=== PATIENT | female | born 1960 | race Caucasian/White ===

== ENCOUNTER 2016-09-20 02:25 | Emergency (ER) | payer OTHER ==
--- NOTE | 2016-09-20 02:53 | ED NURSING NOTES ---
Clinical Report - Nurses Formerly [facility] [address] [place] [address] 09/20/2016 2:28 Patient: MOI DOYLE TRIAGE Triage time 02:Sep 20 2016. Acuity: LEVEL 3. Chief Complaint: CHEST PAIN and DISCOMFORT. Alert. DIVYA COMA SCORE: Divya Coma Scale: 15- eyes open spontaneously (4); best verbal response- oriented x 4 (5); best motor response- obeys commands (6). --02:47 Hernando Holcomb R.N. 02:29 09/20/16. BP: 145/78. HR: 65. RR: 16. O2 saturation: 100% on nasal cannula at 2 liters/minute. Temp: 97.6 F. Pain level now: 7/10. Additional comments: Substernal chest pain. --02:47 Hernando Holcomb R.N. Weight: 68.4 kg measured. Height/Length: 63 inches Per Patient. BMI: 26.7. --02:30 Hernando Holcomb R.N. Medications Levothyroxine Sodium Oral 75 mcg, daily. --02:45 Hernando Holcomb R.N. Medication/allergy information source: the patient. --02:47 Hernando Holcomb R.N. Allergies Penicillins. Definite Severe(swelling) --02:46 Hernando Holcomb R.N. History Arrived by private vehicle. Historian: patient. Accompanied by spouse. ( Chest Pain starting about one hour ago while sleeping. Pt states that she was so uncomfortable that she couldn't go back to sleep.). Onset. (about 1 hour ago). She has had nausea. Treatment TRACK MAINTAINER: (sips of water.). PAST MEDICAL HX: The patient is post-menopausal. SURGERY HX: No history of previous surgery. SOCIAL HX: Heavy tobacco smoker (cigarette)- less than 1 pack per day. No alcohol use or drug use. No infectious disease exposure. ABUSE ASSESSMENT: No report of abuse. FALL RISK ASSESSMENT: Fall risk assessment completed. No fall risk identified. NUTRITIONAL RISK ASSESSMENT: The nutritional risk assessment revealed no deficiencies. FUNCTIONAL ASSESSMENT: Functional assessment: no impairments noted. LEARNING NEEDS ASSESSMENT: The learning needs assessment revealed no barriers. SKIN INTEGRITY ASSESSMENT: Skin integrity risk assessment completed. No skin integrity risk identified. --02:47 Hernando Holcomb R.N. ADDITIONAL SURGERIES: no known surgeries. Interventions ID band on patient. To treatment room. --02:47 Hernando Holcomb R.N. PHYSICAL ASSESSMENT Ambulatory to room. GENERAL / NEURO / PSYCH: Alert. Oriented X 4. HEENT: Mucous membranes are pink. RESPIRATORY: Respirations not labored. CVS: Normal sinus rhythm noted. GI / : Abdomen soft and nontender. EXTREMITIES: No lower extremity edema. SKIN: Skin is warm and dry. Normal skin turgor. --02:48 Hernando Holcomb R.N. NURSING PROGRESS NOTES Oxygen administered by nasal cannula at 2 liters. grocery store associate, pulse oximeter and NIBP monitor placed on patient; youth services specialist- Lead II and V1; monitor alarms on. Patient gowned. Reassurance given to the patient. Patient identifiers checked. Call light placed in reach. Side rails up x 1. Bed placed in lowest position. Brakes of bed on. Patient ready for evaluation- chart flagged and ED physician notified. --02:48 Hernando Holcomb R.N. EKG time: (0237). EKG was ordered, performed by a tech and shown to the ED physician. --02:49 Hernesto Kulkarni, ER Game Farm Supervisor 02:35 09/20/2016 Aspirin PO Tablets 325 mg given. Allergies verified and confirmed 5 rights. --02:50 Hernando Holcomb R.N. 02:37 09/20/2016 Nitroglycerin SL Tablets 0.4 mg given. Allergies verified and confirmed 5 rights. --02:53 Hernando Holcomb R.N. <<STRICKEN ENTRY-- 02:38 09/20/2016 Heparin IVP 5000 unit given over 2 minute(s) via site #2. Allergies verified and confirmed 5 rights. IV patency established. IV site checked: no pain, redness, or swelling. IV flushed thoroughly pre- and post-medication administration. IVP given by RN. --03:03 Hernando Holcomb R.N. --END STRIKE>> Correction. --03:27 Hernando Holcomb R.N. 02:40 09/20/2016 Site #1 started via IV in the left antecubital space with an 18g angiocath, with aseptic technique and good blood return; one attempt. Blood drawn: rainbow set. Labeled in the presence of the patient and sent to the lab. Saline lock flushed with 10 mL saline (start by DANICA Davila). --02:51 Hernando Holcomb R.N. 02:45 09/20/2016 Started bag #1 1000 mL IV Fluids IV NS (Saline); at 1000 mL/hr over 60 minute(s) via site #1 --02:52 Hernando Holcomb R.N. 02:46 09/20/2016 Nitroglycerin SL Tablets 0.4 mg given. Allergies verified and confirmed 5 rights. --02:56 Hernando Holcomb R.N. 02:54 09/20/2016 Zofran (Ondansetron HCl) IVP 8 mg given. via site #1. Allergies verified and confirmed 5 rights. IV patency established. IV site checked: no pain, redness, or swelling. IV flushed thoroughly pre- and post-medication administration. IVP given by RN. --02:59 Hernando Holcomb R.N. 03:00 09/20/2016 Site #2 started via IV in the right with an 20g angiocath, with aseptic technique and good blood return; one attempt. Blood drawn: rainbow set. Labeled in the presence of the patient and sent to the lab. Saline lock flushed with 10 mL saline. --03:03 Hernadno Holcomb R.N. 03:07 09/20/16. BP: 111/64. HR: 80. RR: 16. --03:09 Hernando Holcomb R.N. 02:45 09/20/16. BP: 126/75. HR: 62. RR: 13. O2 saturation: 100% on nasal cannula at 2 liters/minute. Pain level now: 04/30. --03:13 Hernando Holcomb R.N. 03:17 09/20/16. BP: 115/64. HR: 72. RR: 16. O2 saturation: 100% on nasal cannula at 2 liters/minute. --03:25 Hernando Holcomb R.N. 03:00 09/20/2016 Heparin IVP 5000 unit given over 2 minute(s) via site #2. Allergies verified and confirmed 5 rights. IV patency established. IV site checked: no pain, redness, or swelling. IV flushed thoroughly pre- and post-medication administration. IVP given by RN. --03:27 Hernando Holcomb R.N. 03:20 09/20/2016 Lopressor (Metoprolol Tartrate) IVP 5 mg given over 2 minute(s) via site #2. Allergies verified and confirmed 5 rights. IV patency established. IV site checked: no pain, redness, or swelling. IV flushed thoroughly pre- and post-medication administration. IVP given by RN. --03:26 Hernando Holcomb R.N. 03:30 09/20/16. BP: 121/69. HR: 56. RR: 16. O2 saturation: 100% on nasal cannula at 2 liters/minute. Pain level now: 04/30. --03:32 Hernando Holcomb R.N. 03:40 09/20/2016 IV Fluids IV NS Bag Change: bag #1. Total amount infused: 1000. STARTED bag #2 (1000 mL) at 200 mL/hr via IV pump. Confirmed 5 rights. IV patency established. IV site checked: no pain, redness, or swelling. IV flushed thoroughly. --05:21 Hernando Holcomb R.N. 03:41 09/20/2016 Plavix (Clopidogrel Bisulfate) PO Tablets 600 mg given. Allergies verified and confirmed 5 rights. --03:41 Dirk Brown R.N. 03:45 09/20/2016 Site #[address] upon transfer; patent and no signs of infection or infiltration. Good blood return present. Converted to saline lock and flushed with 10 mL saline; flushes easily. --05:27 Hernando Holcomb R.N. 03:45 09/20/2016 Site #[address] upon transfer; patent. Good blood return present. Flushed (IV fluids infusing in this site). --05:28 Hernando Holcomb R.N. 03:45 09/20/2016 IV Fluids IV NS Continued: upon transfer at the rate of 200 mL/hr. 900 mL remaining bag #2. IV patency established. IV site checked: no pain, redness, or swelling. IV flushed thoroughly. --05:25 Hernando Holcomb R.N. ( 0300--Heparin gtt just started by RN and then stopped by the transfer crew because they don't transfer with IV medications on a pump.). --05:33 Hernando Holcomb R.N. DISPOSITION / DISCHARGE Departure time: 0345. --05:07 Hernando Holcomb R.N. 03:45. Condition at departure: improved. Transferred to [facility]. Transported via ambulance by transport team with monitor, IV, O2 and emergency medications. Report was given to a nurse via a phone call. Report included patient's care, treatment, medications, reviewed medication reconcilliation, and condition (including any recent changes or anticipated changes). All questions were answered. Report was acknowledged and care was transferred. --05:14 Hernando Holcomb R.N. 03:30 09/20/16. BP: 124/68. HR: 56. RR: 16. O2 saturation: 100% on nasal cannula at 2 liters/minute. Temp: 98.3 F (oral). Pain level now: 0/10. --05:16 Hernando Holcomb R.N. Locked/Released at 09/20/2016 5:35 by Hernando Holcomb R.N.
--- NOTE | 2016-09-20 02:53 | ED NURSING NOTES ---
Clinical Report - Nurses Merged With [facility] [address] [place] [address] 09/20/2016 2:28 Patient: MOI DOYLE TRIAGE Triage time 02:Sep 20 2016. Acuity: LEVEL 3. Chief Complaint: CHEST PAIN and DISCOMFORT. Alert. DIVYA COMA SCORE: Divya Coma Scale: 15- eyes open spontaneously (4); best verbal response- oriented x 4 (5); best motor response- obeys commands (6). --02:47 Hernando Holcomb R.N. 02:29 09/20/16. BP: 145/78. HR: 65. RR: 16. O2 saturation: 100% on nasal cannula at 2 liters/minute. Temp: 97.6 F. Pain level now: 7/10. Additional comments: Substernal chest pain. --02:47 Hernando Holcomb R.N. Weight: 68.4 kg measured. Height/Length: 63 inches Per Patient. BMI: 26.7. --02:30 Hernando Holcomb R.N. Medications Levothyroxine Sodium Oral 75 mcg, daily. --02:45 Hernando Holcomb R.N. Medication/allergy information source: the patient. --02:47 Hernando Holcomb R.N. Allergies Penicillins. Definite Severe(swelling) --02:46 Hernando Holcomb R.N. History Arrived by private vehicle. Historian: patient. Accompanied by spouse. ( Chest Pain starting about one hour ago while sleeping. Pt states that she was so uncomfortable that she couldn't go back to sleep.). Onset. (about 1 hour ago). She has had nausea. Treatment SHOWROOM CONSULTANT: (sips of water.). PAST MEDICAL HX: The patient is post-menopausal. SURGERY HX: No history of previous surgery. SOCIAL HX: Heavy tobacco smoker (cigarette)- less than 1 pack per day. No alcohol use or drug use. No infectious disease exposure. ABUSE ASSESSMENT: No report of abuse. FALL RISK ASSESSMENT: Fall risk assessment completed. No fall risk identified. NUTRITIONAL RISK ASSESSMENT: The nutritional risk assessment revealed no deficiencies. FUNCTIONAL ASSESSMENT: Functional assessment: no impairments noted. LEARNING NEEDS ASSESSMENT: The learning needs assessment revealed no barriers. SKIN INTEGRITY ASSESSMENT: Skin integrity risk assessment completed. No skin integrity risk identified. --02:47 Hernando Holcomb R.N. ADDITIONAL SURGERIES: no known surgeries. Interventions ID band on patient. To treatment room. --02:47 Hernando Holcomb R.N. PHYSICAL ASSESSMENT Ambulatory to room. GENERAL / NEURO / PSYCH: Alert. Oriented X 4. HEENT: Mucous membranes are pink. RESPIRATORY: Respirations not labored. CVS: Normal sinus rhythm noted. GI / : Abdomen soft and nontender. EXTREMITIES: No lower extremity edema. SKIN: Skin is warm and dry. Normal skin turgor. --02:48 Hernando Holcomb R.N. NURSING PROGRESS NOTES Oxygen administered by nasal cannula at 2 liters. concrete panel installer, pulse oximeter and NIBP monitor placed on patient; liner reroll tender- Lead II and V1; monitor alarms on. Patient gowned. Reassurance given to the patient. Patient identifiers checked. Call light placed in reach. Side rails up x 1. Bed placed in lowest position. Brakes of bed on. Patient ready for evaluation- chart flagged and ED physician notified. --02:48 Hernando Holcomb R.N. EKG time: (0237). EKG was ordered, performed by a tech and shown to the ED physician. --02:49 Hernesto Kulkarni, ER Machine Rough Rounder 02:35 09/20/2016 Aspirin PO Tablets 325 mg given. Allergies verified and confirmed 5 rights. --02:50 Hernando Holcomb R.N. 02:37 09/20/2016 Nitroglycerin SL Tablets 0.4 mg given. Allergies verified and confirmed 5 rights. --02:53 Hernando Holcomb R.N. <<STRICKEN ENTRY-- 02:38 09/20/2016 Heparin IVP 5000 unit given over 2 minute(s) via site #2. Allergies verified and confirmed 5 rights. IV patency established. IV site checked: no pain, redness, or swelling. IV flushed thoroughly pre- and post-medication administration. IVP given by RN. --03:03 Hernando Holcomb R.N. --END STRIKE>> Correction. --03:27 Hernando Holcomb R.N. 02:40 09/20/2016 Site #1 started via IV in the left antecubital space with an 18g angiocath, with aseptic technique and good blood return; one attempt. Blood drawn: rainbow set. Labeled in the presence of the patient and sent to the lab. Saline lock flushed with 10 mL saline (start by DANICA Davila). --02:51 Hernando Holcomb R.N. 02:45 09/20/2016 Started bag #1 1000 mL IV Fluids IV NS (Saline); at 1000 mL/hr over 60 minute(s) via site #1 --02:52 Hernando Holcomb R.N. 02:46 09/20/2016 Nitroglycerin SL Tablets 0.4 mg given. Allergies verified and confirmed 5 rights. --02:56 Hernando Holcomb R.N. 02:54 09/20/2016 Zofran (Ondansetron HCl) IVP 8 mg given. via site #1. Allergies verified and confirmed 5 rights. IV patency established. IV site checked: no pain, redness, or swelling. IV flushed thoroughly pre- and post-medication administration. IVP given by RN. --02:59 Hernando Holcomb R.N. 03:00 09/20/2016 Site #2 started via IV in the right with an 20g angiocath, with aseptic technique and good blood return; one attempt. Blood drawn: rainbow set. Labeled in the presence of the patient and sent to the lab. Saline lock flushed with 10 mL saline. --03:03 Hernando Holcomb R.N. 03:07 09/20/16. BP: 111/64. HR: 80. RR: 16. --03:09 Hernando Holcomb R.N. 02:45 09/20/16. BP: 126/75. HR: 62. RR: 13. O2 saturation: 100% on nasal cannula at 2 liters/minute. Pain level now: 04/30. --03:13 Hernando Holcomb R.N. 03:17 09/20/16. BP: 115/64. HR: 72. RR: 16. O2 saturation: 100% on nasal cannula at 2 liters/minute. --03:25 Hernando Holcomb R.N. 03:00 09/20/2016 Heparin IVP 5000 unit given over 2 minute(s) via site #2. Allergies verified and confirmed 5 rights. IV patency established. IV site checked: no pain, redness, or swelling. IV flushed thoroughly pre- and post-medication administration. IVP given by RN. --03:27 Hernando Holcomb R.N. 03:20 09/20/2016 Lopressor (Metoprolol Tartrate) IVP 5 mg given over 2 minute(s) via site #2. Allergies verified and confirmed 5 rights. IV patency established. IV site checked: no pain, redness, or swelling. IV flushed thoroughly pre- and post-medication administration. IVP given by RN. --03:26 Hernando Holcomb R.N. 03:30 09/20/16. BP: 121/69. HR: 56. RR: 16. O2 saturation: 100% on nasal cannula at 2 liters/minute. Pain level now: 04/30. --03:32 Hernando Holcomb R.N. 03:40 09/20/2016 IV Fluids IV NS Bag Change: bag #1. Total amount infused: 1000. STARTED bag #2 (1000 mL) at 200 mL/hr via IV pump. Confirmed 5 rights. IV patency established. IV site checked: no pain, redness, or swelling. IV flushed thoroughly. --05:21 Hernando Holcomb R.N. 03:41 09/20/2016 Plavix (Clopidogrel Bisulfate) PO Tablets 600 mg given. Allergies verified and confirmed 5 rights. --03:41 Dirk Brown R.N. 03:45 09/20/2016 Site #[address] upon transfer; patent and no signs of infection or infiltration. Good blood return present. Converted to saline lock and flushed with 10 mL saline; flushes easily. --05:27 Hernando Holcomb R.N. 03:45 09/20/2016 Site #[address] upon transfer; patent. Good blood return present. Flushed (IV fluids infusing in this site). --05:28 Hernando Holcomb R.N. 03:45 09/20/2016 IV Fluids IV NS Continued: upon transfer at the rate of 200 mL/hr. 900 mL remaining bag #2. IV patency established. IV site checked: no pain, redness, or swelling. IV flushed thoroughly. --05:25 Hernando Holcomb R.N. ( 0300--Heparin gtt just started by RN and then stopped by the transfer crew because they don't transfer with IV medications on a pump.). --05:33 Hernando Holcomb R.N. DISPOSITION / DISCHARGE Departure time: 0345. --05:07 Hernando Holcomb R.N. 03:45. Condition at departure: improved. Transferred to [facility]. Transported via ambulance by transport team with monitor, IV, O2 and emergency medications. Report was given to a nurse via a phone call. Report included patient's care, treatment, medications, reviewed medication reconcilliation, and condition (including any recent changes or anticipated changes). All questions were answered. Report was acknowledged and care was transferred. --05:14 Hernando Holcomb R.N. 03:30 09/20/16. BP: 124/68. HR: 56. RR: 16. O2 saturation: 100% on nasal cannula at 2 liters/minute. Temp: 98.3 F (oral). Pain level now: 0/10. --05:16 Hernando Holcomb R.N. Locked/Released at 09/20/2016 5:35 by Hernando Holcomb R.N.
--- NOTE | 2016-09-20 02:53 | ED CLINICAL REPORT ---
Clinical Report - Physicians/Mid Levels [facility] [address] [place] [address] 09/20/2016 2:28 Patient: MOI DOYLE Time Seen: 02:30. Arrived- By private vehicle. Historian- patient. HISTORY OF PRESENT ILLNESS Chief Complaint: CHEST PAIN. At its maximum, severity described as moderate. When seen in the E.D., severity described as moderate. Modifying factors. Not worsened by anything. Not relieved by anything. This started about 1 hour ago and is still present. Onset during sleep. It is described as "pain" and it is described as located in the left chest area. The patient has had mild difficulty breathing and nausea. No vomiting or diaphoresis. Similar symptoms previously: None. Recent medical care: Not recently seen/assessed. REVIEW OF SYSTEMS No fever, chills, cough, pedal edema or calf pain. No fainting episodes, headache, sore throat, blurred vision or abdominal pain. No black stools, difficulty with urination, skin rash, enlarged lymph nodes or joint pain. No bloody stools. All systems otherwise negative, except as recorded above. PAST HISTORY Problems: no known problems. Additional Surgeries: no known surgeries. Medications: Levothyroxine Sodium Oral 75 mcg, daily. Allergies: Penicillins. Definite Severe(swelling). SOCIAL HISTORY Smoker- current status unknown. No alcohol use or drug use. ADDITIONAL NOTES The nursing notes have been reviewed. PHYSICAL EXAM Vital Signs: 09/20/2016 02:29 BP: 145/78. HR: 65. RR: 16. O2 saturation: 100%. Temp: 97.6 F. Pain level now: 10. Have been reviewed. Appearance: Alert. Oriented X3. Patient in mild distress. Distress appears due to pain. Eyes: Pupils equal, round and reactive to light. Eyes normal inspection. ENT: Nose normal. Neck: Normal inspection. CVS: Normal heart rate and rhythm. Heart sounds normal. Pulses normal. Respiratory: No respiratory distress. Breath sounds normal. Chest nontender. Abdomen: Soft and nontender. Back: Normal external inspection. No CVA tenderness. Skin: Skin warm and dry. Normal skin color. No rash. Normal skin turgor. Extremities: Extremities exhibit normal ROM. No lower extremity edema. Neuro: Oriented X 3. No motor deficit. No sensory deficit. LABS, X-RAYS, AND EKG EKG: EKG time: (236). Normal sinus rhythm. Rate: 60. Normal P waves. Normal EDWIN. Normal QRS complex. Normal axis. Normal QT and QTc. ST elevation in lead III, aVF, V5 and V6- consistent with infarction. Marked ST depression in lead V2 and V3- consistent with reciprocal changes. Prior EKG unavailable. The study has been interpreted contemporaneously by me. The study has been independently viewed by me. The EKG appears to be a good tracing. I agree with and confirm the computer reading of the EKG. Rhythm Strip #1: Time: (230). Rate= 62. Normal sinus rhythm. Regular rhythm. Narrow QRS complexes. No ectopy. Conduction normal. Normal ST segments and T waves. The study was interpreted by me. Chest X-ray: No acute disease. Normal lung markings present. Normal heart size. Mediastinum normal. Great vessels normal. Soft tissues normal. No infiltrate. No fracture. No bony lesion present. Views: AP (portable). Technique: good. The X-rays were independently viewed by me and interpreted contemporaneously by me. Prior films were not available for comparison. Laboratory Tests: CBC w Diff: (RANDY: 09/20/2016 02:40) ( MsgRcvd 09/20/2016 02:55) Final results Test Result Flag Units (Reference) WHITE BLOOD COUNT 6.5 K/uL (4.5-11.5) RED BLOOD COUNT 4.69 M/uL (4.00-5.20) HEMOGLOBIN 14.6 gm/dL (12.0-16.0) HEMATOCRIT 43.3 % (36.0-46.0) MEAN CELL VOLUME 92 fL (80-100) MEAN CORPUSCULAR HGB 31 pg (26-34) MEAN CORPUSCULAR HGB CONC 34 g/dL (31-37) RED CELL DISTRIBUTION WIDTH 13.1 % (11.6-14.8) PLATELET COUNT 286 K/uL (150-400) NEUTROPHIL % 41.4 L % (50-75) LYMPH % 46.5 H % (25-40) MONO % 8.9 % (3-14) EOSINOPHIL % 2.6 % (0-4) BASOPHIL % 0.6 % (0-2) CHEM 13 PANEL: (RANDY: 09/20/2016 02:40) ( MsgRcvd 09/20/2016 03:07) Final results Test Result Flag Units (Reference) GLUCOSE 105 mg/dL (70-110) BUN 15 mg/dL (7-18) CREATININE 1.0 mg/dL (0.6-1.3) Estimated GFR >60 mL/min Estimated GFR- >60 mL/min Note: Persistent reduction over 3 months in eGFR<60 mL/min/1.73 m2 defines CKD. Patients with eGFR values>=60 mL/min/1.73 m2 may also have CKD if evidence ofpersistent proteinuria. Additional information may be foundat www.kidney.org. SODIUM 144 mmol/L (136-145) POTASSIUM 3.8 mmol/L (3.5-5.1) CHLORIDE 107 mmol/L (98-107) CARBON DIOXIDE 27 mmol/L (21-32) CALCIUM 9.3 mg/dL (8.5-10.1) TOTAL PROTEIN 7.7 g/dL (6.4-8.2) ALBUMIN 3.8 g/dL (3.3-5.0) BILIRUBIN, TOTAL 0.3 mg/dL (0.0-1.0) ALKALINE PHOSPHATASE 81 U/L (46-116) AST (SGOT) 22 U/L (15-37) ALT (SGPT) 30 U/L (12-78) MAGNESIUM 2.2 mg/dL (1.8-2.4) CPK 104 U/L (24-260) TROPONIN I 0.05 ng/mL (0.00-1.5) TROPONIN REFERENCE RANGE:<0.1 NEGATIVE0.1-1.5 INDETERMINANT>1.5 POSITIVE . Pulse Oximetry: 09/20/2016 02:29 O2 saturation: 100%. (FIO2 - room air). Interpretation: normal. PROGRESS AND PROCEDURES Course of Care: Patient was evaluated by myself in the emergency department, immediately upon seeing the EKG reading "STEMI". The patient was still having active chest pain and was vomiting. I did immediately initiate proceedings to transfer the patient for cardiac catheterization. I spoke with Dr. Watt, the on-call dedicated owner operator at [facility], and he did accept the patient in transfer. Patient was given aspirin, Lopressor, Plavix, heparin and nitroglycerin. She was also given Zofran for her nausea. I did immediately informed the patient and her that the patient had been accepted for emergent cardiac catheterization at [facility] and would surely be transferred. The became irate, demanding that the patient be transferred to [place] "now". I did have some boone words with the patient's as he was upsetting the patient who is in the midst of having a STEMI. I informed the patient's that we do all that we can to respect the wishes of the patient and/or family; however that time is of the essence and the patient must be transferred as soon as possible for the best possible outcome and at least possible damage to her heart. The was adamant that the patient be transferred to [place] and that he would not allow for the patient to be transferred to [facility]. The patient weakly protested, but ultimately acquiesced to the 's demands. I did inform the that I would attempt to have the patient transferred to [place], and did immediately have my staff begin the process of trying to get a hold of the chemical applicator there. However, once again I did inform the that this would be an unnecessary delay in the patient's care and may result in increased morbidity and even mortality. The was accepting of these risks. It did take an extra 30 minutes of working with [facility] to get the appropriate chemical applicator on the line; however I was ultimately able to get an accepting chemical applicator for the patient and the patient was transferred emergently to [facility] for emergent cardiac catheterization. The patient did remain stable throughout her stay in the emergency department. 03:05 09/20/16. The patient's states he absolutely does not want the patient to go to [facility]. I have informed him that given the patient's condition, and time is of the essence to get her in to the catheterization lab. I have informed the that I already spoke with the dedicated owner operator at [facility], who has accepted the patient, and is awaiting her arrival. The does understand that I will have to page a chemical applicator at [facility] which will further delay the patient's care. Patient's has escalated and is yelling, stating that he is adamantly against the patient going to [facility] and demanding that she go to [facility] anyway. At this point, we are trying to reach the [facility] nursing bonding supervisor to speak with the dedicated owner operator, arrange laboratory supervisor. 03:29. The nursing bonding supervisor [facility] called back at this time to determine whether the patient has a primary care physician or not, as this will determine which interventional list with do her case. The nursing bonding supervisor states she is taking the appropriate interventional list right now. 03:39 09/20/16. The case was discussed with Dr. Avilez, the dedicated owner operator projection printer at [facility]. He accepted the patient in transfer. Patient is currently being loaded onto the stretcher by the paramedics, who have been standing by. Critical care performed (110 minutes). Time is exclusive of separately billable procedures. Time includes: direct patient care, patient reassessment, coordination of patient care, interpretation of data (laboratory data, pulse oximetry, chest xrays and cardiac output measurements), review of patient's medical records, medical consultation, family consultation regarding treatment decisions and documentation of patient care- see progress notes. The patient required critical care due to the acute impairment of vital organ systems (cardiovascular) and a high probability of imminent and life threatening deterioration. Multiple emergent interventions were required to prevent sudden life threatening deterioration. Patient and spouse counseled in person several times regarding the patient's critical condition, test results, diagnosis and need for surgery and transfer. Concerns were addressed. Old medical records reviewed. Disposition: Benefits, risks and alternatives to transfer explained to patient and spouse. Transferred to [facility], [place]. Condition: critical. CLINICAL IMPRESSION Acute posterior myocardial infarction with ST elevation (STEMI). (Electronically signed by Suzy Lezama MD 09/30/2016 0:41)
--- NOTE | 2016-09-20 02:53 | ED ORDER SUMMARY ---
..... Patient: MOI DOYLE OrderSheet [facility] VisitID: [id number] [place] [address] 56y, F Registration Date/Time: 09/20/2016 ORDER SHEET Weight: 68.4 kg (measured) Allergies: Penicillins GENERAL ORDERS: Chest 1V Urgent (02:42 09/20/2016 Mick WASHINGTON) (Ack 2:50 LMuller) (3:10 Tana) Extrusion Supervisor (Continuous) (02:42 09/20/2016 Mick WASHINGTON) (2:52 Linette R.N.) Cardiac Panel Stat (02:49 09/20/2016 Mick WASHINGTON) (2:49 Elizabeth R.N.) Oxygen (2 L/min) (NC) (02:49 09/20/2016 Mick WASHINGTON) (2:52 Linette R.N.) Pulse oximeter (02:49 09/20/2016 Mick WASHINGTON) (2:52 Linette R.N.) EKG - ER Stat (02:49 09/20/2016 Mick WASHINGTON) (2:49 Fran ER Real Time Operator) PT with INR Urgent (03:36 09/20/2016 Mick WASHINGTON) (Ack 3:42 Meka) (5:25 Linette R.N.) MEDICATION ORDERS: Aspirin PO 325 mg (Do not crush or chew, NOW) (02:42 09/20/2016 Mick WASHINGTON) (2:50 Linette R.N.) NitroGLYCERIN SL 0.4 mg (x3 PRN Chest Pain) (02:43 09/20/2016 Mick WASHINGTON) (2:53 Linette R.N.) Plavix PO 600 mg (HIGH ALERT MEDICATION, NOW) (03:36 09/20/2016 Mick WASHINGTON) (3:41 Reyes R.N.) IV FLUIDS: IV NS : initial bolus 1000 mL (1000 mL/hr), then none - (NOW) (02:42 09/20/2016 Mick WASHINGTON) (2:52 Linette R.N.) Lopressor IV 5 mg (x 3) (02:43 09/20/2016 Mick WASHINGTON) (3:26 Linette FieldNAlton) Heparin IV : initial bolus 5,000 units, then 12 units/kg/hr (HIGH ALERT MEDICATION, NOW) (02:44 09/20/2016 Mick WASHINGTON) (3:03 Linette Hurst.N.) Zofran IV 8 mg (NOW) (02:56 09/20/2016 Mick WASHINGTON) (2:59 Linette R.N.) Zofran IV 8 mg (NOW) (02:58 09/20/2016 Linette Rogers. verbal order read back to Mick WASHINGTON) (Cancelled: Duplicate Order2:58 Linette R.N.) ORDER SHEET NOTES: [Electronically signed by Hernando Holcomb R.N. (05:35 09/20/2016)] [Electronically signed by Suzy Lezama MD (00:41 09/30/2016)] [Electronically locked/signed by Hernando Holcomb R.N. (05:35 09/20/2016)]
--- NOTE | 2016-09-20 02:53 | ED ORDER SUMMARY ---
..... Patient: MOI DOYLE OrderSheet [facility] VisitID: [id number] [place] [address] 56y, F Registration Date/Time: 09/20/2016 ORDER SHEET Weight: 68.4 kg (measured) Allergies: Penicillins GENERAL ORDERS: Chest 1V Urgent (02:42 09/20/2016 Mick WASHINGTON) (Ack 2:50 LMuller) (3:10 Tana) Arbor Press Operator (Continuous) (02:42 09/20/2016 Mick WASHINGTON) (2:52 Linette R.N.) Cardiac Panel Stat (02:49 09/20/2016 Mick WASHINGTON) (2:49 Elizabeth R.N.) Oxygen (2 L/min) (NC) (02:49 09/20/2016 Mick WASHINGTON) (2:52 Linette R.N.) Pulse oximeter (02:49 09/20/2016 Mick WASHINGTON) (2:52 Linette R.N.) EKG - ER Stat (02:49 09/20/2016 Mick WASHINGTON) (2:49 Fran ER Fixed Capital Clerk) PT with INR Urgent (03:36 09/20/2016 Mick WASHINGTON) (Ack 3:42 Meka) (5:25 Linette R.N.) MEDICATION ORDERS: Aspirin PO 325 mg (Do not crush or chew, NOW) (02:42 09/20/2016 Mick WASHINGTON) (2:50 Linette R.N.) NitroGLYCERIN SL 0.4 mg (x3 PRN Chest Pain) (02:43 09/20/2016 Mick WASHINGTON) (2:53 Linette R.N.) Plavix PO 600 mg (HIGH ALERT MEDICATION, NOW) (03:36 09/20/2016 Mick WASHINGTON) (3:41 Reyes R.N.) IV FLUIDS: IV NS : initial bolus 1000 mL (1000 mL/hr), then none - (NOW) (02:42 09/20/2016 Mick WASHINGTON) (2:52 Linette R.N.) Lopressor IV 5 mg (x 3) (02:43 09/20/2016 Mick WASHINGTON) (3:26 Linette FieldNAlton) Heparin IV : initial bolus 5,000 units, then 12 units/kg/hr (HIGH ALERT MEDICATION, NOW) (02:44 09/20/2016 Mick WASHINGTON) (3:03 Linette Hurst.N.) Zofran IV 8 mg (NOW) (02:56 09/20/2016 Mick WASHINGTON) (2:59 Linette R.N.) Zofran IV 8 mg (NOW) (02:58 09/20/2016 Linette Rogers. verbal order read back to Mick WASHINGTON) (Cancelled: Duplicate Order2:58 Linette R.N.) ORDER SHEET NOTES: [Electronically signed by Hernando Holcomb R.N. (05:35 09/20/2016)] [Electronically signed by Suzy Lezama MD (00:41 09/30/2016)] [Electronically locked/signed by Hernando Holcomb R.N. (05:35 09/20/2016)]
--- NOTE | 2016-09-20 02:53 | ED CLINICAL REPORT ---
Clinical Report - Physicians/Mid Levels [facility] [address] [place] [address] 09/20/2016 2:28 Patient: MOI DOYLE Time Seen: 02:30. Arrived- By private vehicle. Historian- patient. HISTORY OF PRESENT ILLNESS Chief Complaint: CHEST PAIN. At its maximum, severity described as moderate. When seen in the E.D., severity described as moderate. Modifying factors. Not worsened by anything. Not relieved by anything. This started about 1 hour ago and is still present. Onset during sleep. It is described as "pain" and it is described as located in the left chest area. The patient has had mild difficulty breathing and nausea. No vomiting or diaphoresis. Similar symptoms previously: None. Recent medical care: Not recently seen/assessed. REVIEW OF SYSTEMS No fever, chills, cough, pedal edema or calf pain. No fainting episodes, headache, sore throat, blurred vision or abdominal pain. No black stools, difficulty with urination, skin rash, enlarged lymph nodes or joint pain. No bloody stools. All systems otherwise negative, except as recorded above. PAST HISTORY Problems: no known problems. Additional Surgeries: no known surgeries. Medications: Levothyroxine Sodium Oral 75 mcg, daily. Allergies: Penicillins. Definite Severe(swelling). SOCIAL HISTORY Smoker- current status unknown. No alcohol use or drug use. ADDITIONAL NOTES The nursing notes have been reviewed. PHYSICAL EXAM Vital Signs: 09/20/2016 02:29 BP: 145/78. HR: 65. RR: 16. O2 saturation: 100%. Temp: 97.6 F. Pain level now: 10. Have been reviewed. Appearance: Alert. Oriented X3. Patient in mild distress. Distress appears due to pain. Eyes: Pupils equal, round and reactive to light. Eyes normal inspection. ENT: Nose normal. Neck: Normal inspection. CVS: Normal heart rate and rhythm. Heart sounds normal. Pulses normal. Respiratory: No respiratory distress. Breath sounds normal. Chest nontender. Abdomen: Soft and nontender. Back: Normal external inspection. No CVA tenderness. Skin: Skin warm and dry. Normal skin color. No rash. Normal skin turgor. Extremities: Extremities exhibit normal ROM. No lower extremity edema. Neuro: Oriented X 3. No motor deficit. No sensory deficit. LABS, X-RAYS, AND EKG EKG: EKG time: (236). Normal sinus rhythm. Rate: 60. Normal P waves. Normal EDWIN. Normal QRS complex. Normal axis. Normal QT and QTc. ST elevation in lead III, aVF, V5 and V6- consistent with infarction. Marked ST depression in lead V2 and V3- consistent with reciprocal changes. Prior EKG unavailable. The study has been interpreted contemporaneously by me. The study has been independently viewed by me. The EKG appears to be a good tracing. I agree with and confirm the computer reading of the EKG. Rhythm Strip #1: Time: (230). Rate= 62. Normal sinus rhythm. Regular rhythm. Narrow QRS complexes. No ectopy. Conduction normal. Normal ST segments and T waves. The study was interpreted by me. Chest X-ray: No acute disease. Normal lung markings present. Normal heart size. Mediastinum normal. Great vessels normal. Soft tissues normal. No infiltrate. No fracture. No bony lesion present. Views: AP (portable). Technique: good. The X-rays were independently viewed by me and interpreted contemporaneously by me. Prior films were not available for comparison. Laboratory Tests: CBC w Diff: (RANDY: 09/20/2016 02:40) ( MsgRcvd 09/20/2016 02:55) Final results Test Result Flag Units (Reference) WHITE BLOOD COUNT 6.5 K/uL (4.5-11.5) RED BLOOD COUNT 4.69 M/uL (4.00-5.20) HEMOGLOBIN 14.6 gm/dL (12.0-16.0) HEMATOCRIT 43.3 % (36.0-46.0) MEAN CELL VOLUME 92 fL (80-100) MEAN CORPUSCULAR HGB 31 pg (26-34) MEAN CORPUSCULAR HGB CONC 34 g/dL (31-37) RED CELL DISTRIBUTION WIDTH 13.1 % (11.6-14.8) PLATELET COUNT 286 K/uL (150-400) NEUTROPHIL % 41.4 L % (50-75) LYMPH % 46.5 H % (25-40) MONO % 8.9 % (3-14) EOSINOPHIL % 2.6 % (0-4) BASOPHIL % 0.6 % (0-2) CHEM 13 PANEL: (RANDY: 09/20/2016 02:40) ( MsgRcvd 09/20/2016 03:07) Final results Test Result Flag Units (Reference) GLUCOSE 105 mg/dL (70-110) BUN 15 mg/dL (7-18) CREATININE 1.0 mg/dL (0.6-1.3) Estimated GFR >60 mL/min Estimated GFR- >60 mL/min Note: Persistent reduction over 3 months in eGFR<60 mL/min/1.73 m2 defines CKD. Patients with eGFR values>=60 mL/min/1.73 m2 may also have CKD if evidence ofpersistent proteinuria. Additional information may be foundat www.kidney.org. SODIUM 144 mmol/L (136-145) POTASSIUM 3.8 mmol/L (3.5-5.1) CHLORIDE 107 mmol/L (98-107) CARBON DIOXIDE 27 mmol/L (21-32) CALCIUM 9.3 mg/dL (8.5-10.1) TOTAL PROTEIN 7.7 g/dL (6.4-8.2) ALBUMIN 3.8 g/dL (3.3-5.0) BILIRUBIN, TOTAL 0.3 mg/dL (0.0-1.0) ALKALINE PHOSPHATASE 81 U/L (46-116) AST (SGOT) 22 U/L (15-37) ALT (SGPT) 30 U/L (12-78) MAGNESIUM 2.2 mg/dL (1.8-2.4) CPK 104 U/L (24-260) TROPONIN I 0.05 ng/mL (0.00-1.5) TROPONIN REFERENCE RANGE:<0.1 NEGATIVE0.1-1.5 INDETERMINANT>1.5 POSITIVE . Pulse Oximetry: 09/20/2016 02:29 O2 saturation: 100%. (FIO2 - room air). Interpretation: normal. PROGRESS AND PROCEDURES Course of Care: Patient was evaluated by myself in the emergency department, immediately upon seeing the EKG reading "STEMI". The patient was still having active chest pain and was vomiting. I did immediately initiate proceedings to transfer the patient for cardiac catheterization. I spoke with Dr. Watt, the on-call new grad rn at [facility], and he did accept the patient in transfer. Patient was given aspirin, Lopressor, Plavix, heparin and nitroglycerin. She was also given Zofran for her nausea. I did immediately informed the patient and her that the patient had been accepted for emergent cardiac catheterization at [facility] and would surely be transferred. The became irate, demanding that the patient be transferred to [place] "now". I did have some boone words with the patient's as he was upsetting the patient who is in the midst of having a STEMI. I informed the patient's that we do all that we can to respect the wishes of the patient and/or family; however that time is of the essence and the patient must be transferred as soon as possible for the best possible outcome and at least possible damage to her heart. The was adamant that the patient be transferred to [place] and that he would not allow for the patient to be transferred to [facility]. The patient weakly protested, but ultimately acquiesced to the 's demands. I did inform the that I would attempt to have the patient transferred to [place], and did immediately have my staff begin the process of trying to get a hold of the manager game there. However, once again I did inform the that this would be an unnecessary delay in the patient's care and may result in increased morbidity and even mortality. The was accepting of these risks. It did take an extra 30 minutes of working with [place] to get the appropriate manager game on the line; however I was ultimately able to get an accepting manager game for the patient and the patient was transferred emergently to [facility] for emergent cardiac catheterization. The patient did remain stable throughout her stay in the emergency department. 03:05 09/20/16. The patient's states he absolutely does not want the patient to go to [facility]. I have informed him that given the patient's condition, and time is of the essence to get her in to the catheterization lab. I have informed the that I already spoke with the new grad rn at [facility], who has accepted the patient, and is awaiting her arrival. The does understand that I will have to page a manager game at [place] which will further delay the patient's care. Patient's has escalated and is yelling, stating that he is adamantly against the patient going to [facility] and demanding that she go to [place] anyway. At this point, we are trying to reach the [place] nursing training personnel supervisor to speak with the new grad rn, arrange industrial laborer. 03:29. The nursing training personnel supervisor [facility] called back at this time to determine whether the patient has a primary care physician or not, as this will determine which interventional list with do her case. The nursing training personnel supervisor states she is taking the appropriate interventional list right now. 03:39 09/20/16. The case was discussed with Dr. Avilez, the new grad rn cement and concrete plant worker at [facility]. He accepted the patient in transfer. Patient is currently being loaded onto the stretcher by the paramedics, who have been standing by. Critical care performed (110 minutes). Time is exclusive of separately billable procedures. Time includes: direct patient care, patient reassessment, coordination of patient care, interpretation of data (laboratory data, pulse oximetry, chest xrays and cardiac output measurements), review of patient's medical records, medical consultation, family consultation regarding treatment decisions and documentation of patient care- see progress notes. The patient required critical care due to the acute impairment of vital organ systems (cardiovascular) and a high probability of imminent and life threatening deterioration. Multiple emergent interventions were required to prevent sudden life threatening deterioration. Patient and spouse counseled in person several times regarding the patient's critical condition, test results, diagnosis and need for surgery and transfer. Concerns were addressed. Old medical records reviewed. Disposition: Benefits, risks and alternatives to transfer explained to patient and spouse. Transferred to [facility], [place]. Condition: critical. CLINICAL IMPRESSION Acute posterior myocardial infarction with ST elevation (STEMI). (Electronically signed by Suzy Lezama MD 09/30/2016 0:41)
--- NOTE | 2016-09-20 06:52 | DIAGNOSTIC IMAGING REPORT ---
PROCEDURE: XR CHEST 1 VIEW INDICATION: CHEST PAIN TECHNIQUE: Single view chest. 02:59 hours COMPARISON: None. FINDINGS: The cardiomediastinal contour and central vasculature are normal. The lungs are clear without focal consolidation, pleural effusion or pneumothorax. The osseous structures are intact. Two 10 mm rounded lobular sclerotic bone lesions in the right humeral neck, enchondroma versus bone islands, benign appearing. IMPRESSION: 1. No evidence of acute cardiopulmonary disease.
--- NOTE | 2016-09-30 00:41 | ED DISCHARGE INSTRUCTIONS ---
Patient: MOI DOYLE General Instructions [facility] VisitID: [id number] [address] [place] [address] 56y, F Registration Date/Time: 09/20/2016 Acute posterior myocardial infarction with ST elevation (STEMI). (Electronically signed by Suzy Lezama MD 09/30/2016 0:41)
--- NOTE | 2016-09-30 00:41 | ED MAR SUMMARY ---
..... Medication Administration Record [facility] [address] [place] [address] Patient: MOI DOYLE Visit ID: [id number] 56y, F Weight: 68.4 kg Height/Length: 63 in BMI: 26.7 ALLERGIES: Penicillins Given 02:35 09/20/2016 Hernando Holcomb R.N. Medication Administered: ASPIRIN [PO], Dose: 325 mg Tablets PO. Medication Ordered: Aspirin PO 325 mg (Do not crush or chew, NOW). Given 02:37 09/20/2016 Hernando Holcomb R.N. Medication Administered: NITROGLYCERIN [SL], Dose: 0.4 mg Tablets SL. Medication Ordered: NitroGLYCERIN SL 0.4 mg (x3 PRN Chest Pain). Start 02:45 09/20/2016 Hernando Holcomb R.N., Continued Upon Transfer 03:45 09/20/2016 Hernando Holcomb R.N. Medication Administered: IV NS (SALINE), Dose: IV Fluids over 60 minute(s), Rate: 1000 mL/hr, Dispensed: 1000 mL bag, Site: #1 left AC. Medication Ordered: IV NS : initial bolus 1000 mL (1000 mL/hr), then none - (NOW). Given 02:46 09/20/2016 Hernando Holcomb R.N. Medication Administered: NITROGLYCERIN [SL], Dose: 0.4 mg Tablets SL. Medication Ordered: NitroGLYCERIN SL 0.4 mg (x3 PRN Chest Pain). Given 02:54 09/20/2016 Hernando Holcomb R.N. Medication Administered: ZOFRAN [IVP] (ONDANSETRON HCL), Dose: 8 mg IVP, Site: #1 left AC. Medication Ordered: Zofran IV 8 mg (NOW). Given 03:00 09/20/2016 Hernando Holcomb R.N. Medication Administered: HEPARIN [IVP], Dose: 5000 unit IVP over 2 minute(s), Site: #2 right. Medication Ordered: Heparin IV : initial bolus 5,000 units, then 12 units/kg/hr (HIGH ALERT MEDICATION, NOW). Given 03:20 09/20/2016 Hernando Holcomb R.N. Medication Administered: LOPRESSOR [IVP] (METOPROLOL TARTRATE), Dose: 5 mg IVP over 2 minute(s), Site: #2 right. Medication Ordered: Lopressor IV 5 mg (x 3). Given 03:41 09/20/2016 Dirk Brown R.N. Medication Administered: PLAVIX [PO] (CLOPIDOGREL BISULFATE), Dose: 600 mg Tablets PO. Medication Ordered: Plavix PO 600 mg (HIGH ALERT MEDICATION, NOW).
--- NOTE | 2016-09-30 00:41 | ED MAR SUMMARY ---
..... Medication Administration Record [facility] [address] [place] [address] Patient: MOI DOYLE Visit ID: [id number] 56y, F Weight: 68.4 kg Height/Length: 63 in BMI: 26.7 ALLERGIES: Penicillins Given 02:35 09/20/2016 Hernando Holcomb R.N. Medication Administered: ASPIRIN [PO], Dose: 325 mg Tablets PO. Medication Ordered: Aspirin PO 325 mg (Do not crush or chew, NOW). Given 02:37 09/20/2016 Hernando Holcomb R.N. Medication Administered: NITROGLYCERIN [SL], Dose: 0.4 mg Tablets SL. Medication Ordered: NitroGLYCERIN SL 0.4 mg (x3 PRN Chest Pain). Start 02:45 09/20/2016 Hernando Holcomb R.N., Continued Upon Transfer 03:45 09/20/2016 Hernando Holcomb R.N. Medication Administered: IV NS (SALINE), Dose: IV Fluids over 60 minute(s), Rate: 1000 mL/hr, Dispensed: 1000 mL bag, Site: #1 left AC. Medication Ordered: IV NS : initial bolus 1000 mL (1000 mL/hr), then none - (NOW). Given 02:46 09/20/2016 Hernando Holcomb R.N. Medication Administered: NITROGLYCERIN [SL], Dose: 0.4 mg Tablets SL. Medication Ordered: NitroGLYCERIN SL 0.4 mg (x3 PRN Chest Pain). Given 02:54 09/20/2016 Hernando Holcomb R.N. Medication Administered: ZOFRAN [IVP] (ONDANSETRON HCL), Dose: 8 mg IVP, Site: #1 left AC. Medication Ordered: Zofran IV 8 mg (NOW). Given 03:00 09/20/2016 Hernando Holcomb R.N. Medication Administered: HEPARIN [IVP], Dose: 5000 unit IVP over 2 minute(s), Site: #2 right. Medication Ordered: Heparin IV : initial bolus 5,000 units, then 12 units/kg/hr (HIGH ALERT MEDICATION, NOW). Given 03:20 09/20/2016 Hernando Holcomb R.N. Medication Administered: LOPRESSOR [IVP] (METOPROLOL TARTRATE), Dose: 5 mg IVP over 2 minute(s), Site: #2 right. Medication Ordered: Lopressor IV 5 mg (x 3). Given 03:41 09/20/2016 Dirk Brown R.N. Medication Administered: PLAVIX [PO] (CLOPIDOGREL BISULFATE), Dose: 600 mg Tablets PO. Medication Ordered: Plavix PO 600 mg (HIGH ALERT MEDICATION, NOW).
--- NOTE | 2016-09-30 00:41 | ED DISCHARGE INSTRUCTIONS ---
Patient: MOI DOYLE General Instructions [facility] VisitID: [id number] [address] [place] [address] 56y, F Registration Date/Time: 09/20/2016 Acute posterior myocardial infarction with ST elevation (STEMI). (Electronically signed by Suzy Lezama MD 09/30/2016 0:41)
--- NOTE | 2016-09-30 00:41 | ED MED RECONCILIATION SUMMARY ---
Patient: MOI DOYLE Medication Reconciliation Report [facility] VisitID: [id number] [address] [place] [address] 56y, F Registration Date/Time: 09/20/2016 Weight: 68.4 kg Height/Length: 63 in. BMI: 26.7 ALLERGIES: Penicillins The patient's Home Medications are listed below: THE FOLLOWING MEDICATIONS NEED TO BE RECONCILED: Levothyroxine Sodium Oral 75 mcg, daily The source(s) of the original Home Medication information: patient The following Medications were given to the patient in the Emergency Department: Aspirin [PO] PO 325 mg, administered: 09/20/2016 2:35:00 AM IV NS IV Fluids bolus 0, then 1000 mL/hr, administered: 09/20/2016 2:45:00 AM Nitroglycerin [SL] SL 0.4 mg, administered: 09/20/2016 2:37:00 AM Nitroglycerin [SL] SL 0.4 mg, administered: 09/20/2016 2:46:00 AM Zofran [IVP] IVP 8 mg, administered: 09/20/2016 2:54:00 AM Heparin [IVP] IVP 5000 unit, administered: 09/20/2016 3:00:00 AM Lopressor [IVP] IVP 5 mg, administered: 09/20/2016 3:20:00 AM Plavix [PO] PO 600 mg, administered: 09/20/2016 3:41:00 AM The following Medications were prescribed to the patient: None.
--- NOTE | 2016-09-30 00:41 | ED MED RECONCILIATION SUMMARY ---
Patient: MOI DOYLE Medication Reconciliation Report [facility] VisitID: [id number] [address] [place] [address] 56y, F Registration Date/Time: 09/20/2016 Weight: 68.4 kg Height/Length: 63 in. BMI: 26.7 ALLERGIES: Penicillins The patient's Home Medications are listed below: THE FOLLOWING MEDICATIONS NEED TO BE RECONCILED: Levothyroxine Sodium Oral 75 mcg, daily The source(s) of the original Home Medication information: patient The following Medications were given to the patient in the Emergency Department: Aspirin [PO] PO 325 mg, administered: 09/20/2016 2:35:00 AM IV NS IV Fluids bolus 0, then 1000 mL/hr, administered: 09/20/2016 2:45:00 AM Nitroglycerin [SL] SL 0.4 mg, administered: 09/20/2016 2:37:00 AM Nitroglycerin [SL] SL 0.4 mg, administered: 09/20/2016 2:46:00 AM Zofran [IVP] IVP 8 mg, administered: 09/20/2016 2:54:00 AM Heparin [IVP] IVP 5000 unit, administered: 09/20/2016 3:00:00 AM Lopressor [IVP] IVP 5 mg, administered: 09/20/2016 3:20:00 AM Plavix [PO] PO 600 mg, administered: 09/20/2016 3:41:00 AM The following Medications were prescribed to the patient: None.
== END 2016-09-20 03:45 | disposition short-term general hospital (02) ==
LOC: ED SRH 02:25
DX: I21.3 ST elevation (STEMI) myocardial infarction of unspecified site (principal); R11.10 Vomiting, unspecified